=== PATIENT | male | born 1960 ===

== ENCOUNTER 2017-10-15 11:57 | Observation (INO) | payer MEDICAID ==
[2017-10-15] MEDS ORDERED: Sodium Chloride 0.9% 1,000 ML IV STA (12:45)
--- NOTE | 2017-10-15 13:09 | ED PDOC ---
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 states for the past 2 weeks he's a non-productive cough and an itchy throat. For the past 3 days he's developed a tactile fever along with worsening cough. States he took Tylenol yesterday but did not take any medications today. Further reports having midsternal chest pain present only with coughing. Denies JERRY, hemoptysis, sick contacts, recent travel, leg pain, rash, N/V/D, abdominal pain. Past Medical History Reviewed: Historical Data, Nursing Documentation, Vital Signs Vital Signs: Last Vital Signs Temp 99.0 F 10/15/17 14:41 Pulse 119 H 10/15/17 16:32 Resp 20 10/15/17 14:41 BP 142/71 10/15/17 12:07 Pulse Ox 97 10/15/17 16:32 - Medical History PMH: CAD, Diabetes, HTN, Hypercholesterolemia Denies: Chronic Kidney Disease - Surgical History Surgical History: Coronary Stent (x3) - Family History Family History: States: No Known Family Hx - Home Medications Home Medications: Ambulatory Orders Medication Instructions Recorded Allopurinol [Zyloprim] 300 mg PO DAILY 10/15/17 Aspirin [Ecotrin] 81 mg PO DAILY 10/15/17 Azilsartan Medoxomil [Edarbi] 40 mg PO DAILY 10/15/17 Clopidogrel [Plavix] 75 mg PO DAILY 10/15/17 Dexlansoprazole [Dexilant] 30 mg PO DAILY PRN 10/15/17 Ergocalciferol (Vitamin D2) 50,000 unit PO SAT 10/15/17 [Vitamin D2] Fenofibrate,Micronized 134 mg PO HS 10/15/17 [Fenofibrate] Glipizide [Glipizide ER] 5 mg PO DAILY 10/15/17 Lesinurad [Zurampic] 200 mg PO DAILY 10/15/17 Liraglutide [Victoza 2-Federico] 1.8 mg SC DAILY 10/15/17 Pioglitazone [Actos] 30 mg PO DAILY 08/14/18 Rosuvastatin Calcium [Crestor] 40 mg PO HS 10/15/17 Vortioxetine Hydrobromide 20 mg PO DAILY 10/15/17 [Trintellix] - Allergies Allergies/Adverse Reactions: Allergies Allergy/AdvReac Type Severity Reaction Status Date / Time No Known Allergies Allergy Verified 10/15/17 12:07 Curb-65 Severity Score - CURB-65 Severity Score Confusion: No Bun >19mg/dl (>7mmol/L): Yes Respiratory Rate greater than/equal to 30: No Systolic BP <90 or Diastolic BP less than/equal 60mmHg: No Age >64: No Curb-65 Score: 1 Percentage 30-day mortality: 2.7% Review of Systems ROS Statement: Except As Marked, All Systems Reviewed And Found Negative Constitutional: Positive for: Fever, Chills, Malaise Cardiovascular: Positive for: Chest Pain Respiratory: Positive for: Cough Physical Exam - Reviewed Nursing Documentation Reviewed: Yes Vital Signs Reviewed: Yes - Physical Exam Appears: Positive for: Well, Non-toxic, No Acute Distress Head Exam: Positive for: ATRAUMATIC, NORMAL INSPECTION, NORMOCEPHALIC Skin: Positive for: Normal Color, Warm. Negative for: Rash Eye Exam: Positive for: EOMI, Normal appearance, PERRL ENT: Positive for: Normal ENT Inspection. Negative for: Pharyngeal Erythema, Tonsillar Exudate, Tonsillar Swelling Neck: Positive for: Normal, Painless ROM Cardiovascular/Chest: Positive for: Regular Rate, Rhythm Respiratory: Positive for: Normal Breath Sounds. Negative for: Decreased Breath Sounds, Accessory Muscle Use, Wheezing, Respiratory Distress Gastrointestinal/Abdominal: Positive for: Normal Exam, Soft. Negative for: Tenderness Back: Positive for: Normal Inspection Extremity: Positive for: Normal ROM. Negative for: Calf Tenderness (b/l) Neurologic/Psych: Positive for: Alert, Oriented. Negative for: Aphasia, Facial Droop - Laboratory Results Result Diagrams: 10/15/17 13:55 10/15/17 13:55 - ECG ECG: Positive for: Interpreted By Me ECG Rhythm: Positive for: Sinus Tachycardia. Negative for: ST/T Changes Rate: 119 O2 Sat by Pulse Oximetry: 97 - Radiology X-Ray: Interpreted by Me (CXR) X-Ray Interpretation: Infiltrates (RUL) - Progress ED Course And Treament: Labs, EKG, VBG, IV NS bolus x 1, tylenol 975mg PO, blood culture x 2 ordered. 1435 Rocephin 1gm IV, zithromax 500mg IV ordered. Case d/w Dr. Molina who agrees with care and plan. Case d/w Dr. Parkinson, pt's PMD, who also agrees with care and requests that pt. be admitted to his service. Pt. and son informed of results and plan. Disposition - Clinical Impression Clinical Impression: Pneumonia - Patient ED Disposition Is Patient to be Admitted: Yes - Disposition Disposition Time: 14:36 Condition: GUARDED
--- NOTE | 2017-10-15 13:37 | RAD ---
HISTORY: COMPARISON: No prior. TECHNIQUE: Chest PA and lateral FINDINGS: LINES AND TUBES: None. LUNG AND PLEURA: The lungs are well inflated. There is consolidation in the right upper lobe. No pleural effusion or pneumothorax. HEART AND MEDIASTINUM: The heart is not enlarged. The hilar and mediastinal contours are within normal limits. SKELETAL STRUCTURES: The bony structures are within normal limits for the patient's age. VISUALIZED UPPER ABDOMEN: Normal. OTHER FINDINGS: None. IMPRESSION: Suspect right upper lobe pneumonia. Follow-up after medical management is recommended to ensure complete resolution and exclude underlying mass.
[2017-10-15 13:52] LABS: VENOUS BLOOD GAS BASE EXCESS 2.7 mmol/L (0.0-2.0); VENOUS BLOOD GAS PCO2 44 mmHg (40-60); VENOUS BLOOD GAS PO2 24 mm/Hg (30-55); VENOUS BLOOD PH 7.41 (7.32-7.43)
[2017-10-15 14:14] LABS: BASO % 0.3 % (0.0-2.0); EOS % 0.2 % (0.0-4.0); LYMPH # 0.7 K/uL (1.0-4.3); LYMPH % 8.9 % (20.0-40.0); MEAN CELL VOLUME 87.2 fl (80.0-94.0); MEAN CORPUSCULAR HEMOGLOBIN 28.9 pg (27.0-31.0); MEAN CORPUSCULAR HGB CONC 33.1 g/dL (33.0-37.0); MEAN PLATELET VOLUME 7.4 fl (7.2-11.7); MONO # 0.6 K/uL (0.0-0.8); MONO % 8.4 % (0.0-10.0); NEUT # 6.3 K/uL (1.8-7.0); NEUT % 82.2 % (50.0-75.0); NRBC % 0.2 % (0.0-0.0); PLATELET COUNT 388 K/uL (130-400); RED CELL DISTRIBUTION WIDTH 16.5 % (11.5-14.5); WHITE BLOOD COUNT 7.6 K/uL (4.8-10.8)
[2017-10-15 14:27] LABS: ALB/GLOB RATIO 1.1 (1.0-2.1); ALBUMIN 3.7 g/dL (3.5-5.0); ALT/SGPT 24 U/L (21-72); AST/SGOT 34 U/L (17-59); BLOOD UREA NITROGEN 24 mg/dl (9-20); GFR AFRICAN-AMERICAN > 60; GFR NON-AFRICAN AMERICAN 52
[2017-10-15] MEDS ORDERED: Azithromycin 500 MG in Sodium Chloride 0.9% 250 ML IVPB STA (14:35)
[2017-10-15 14:45] LABS: SQUAMOUS EPITHIAL < 1 /hpf (0-5); URINE BILIRUBIN NEGATIVE (NEGATIVE); URINE BLOOD MODERATE (NEGATIVE); URINE CLARITY CLEAR (Clear); URINE COLOR YELLOW (YELLOW); URINE GLUCOSE (UA) >=500 mg/dL (Normal); URINE LEUKOCYTE ESTERASE NEG Leu/uL (Negative); URINE PROTEIN 100 mg/dL (NEGATIVE)
[2017-10-15] MEDS ORDERED: cefTRIAXone (Rocephin) 1 gm Inj ONE (14:56)
[2017-10-15] MEDS ORDERED: Azithromycin 500 MG IV IVPB ONE (14:57)
[2017-10-15 15:27] LABS: ANISOCYTOSIS SLIGHT; EOSINOPHIL 1 % (0-7); HYPOCHROMIC SLIGHT; LYMPHOCYTE 7 % (20-50); MONOCYTE 7 % (0-10); NEUTROPHIL 85 % (42-75); PLATELET ESTIMATE NORMAL (NORMAL); TOTAL CELLS COUNTED 100
[2017-10-15 15:28] LABS: LARGE PLATELETS PRESENT
[2017-10-15] MEDS ORDERED: DEXLANSOPRAZOLE 30 MG PO PRN (21:55)
[2017-10-16] MEDS: guaiFENesin DM 200 mg-20 mg/10 ml UD PO PRN ×2 (00:14→08:38)
[2017-10-16 05:32] LABS: HEMOGLOBIN 10.5 g/dL (12.0-18.0); MEAN CELL VOLUME 86.5 fl (80.0-94.0); MEAN CORPUSCULAR HEMOGLOBIN 27.8 pg (27.0-31.0); MEAN CORPUSCULAR HGB CONC 32.1 g/dL (33.0-37.0); RBC 3.77 Mil/uL (4.40-5.90); RED CELL DISTRIBUTION WIDTH 16.8 % (11.5-14.5); WHITE BLOOD COUNT 6.7 K/uL (4.8-10.8)
[2017-10-16 05:49] LABS: ALBUMIN 3.4 g/dL (3.5-5.0); ALT/SGPT 21 U/L (21-72); AST/SGOT 25 U/L (17-59); BLOOD UREA NITROGEN 19 mg/dl (9-20); CALCIUM 8.7 mg/dL (8.4-10.2); GFR AFRICAN-AMERICAN > 60; GFR NON-AFRICAN AMERICAN > 60
[2017-10-16] MEDS: GlipiZIDE 5 mg SR Tab PO SCH (08:28)
[2017-10-16] MEDS: Azithromycin 500 MG in Sodium Chloride 0.9% 250 ML IVPB SCH (08:28)
[2017-10-16] MEDS: Pantoprazole 40 mg EC Tab PO SCH (08:29)
--- NOTE | 2017-10-16 08:33 | CARD ---
APPROVED REPORT Date of service: 10/15/2017 <Conclusion> Sinus tachycardia Low voltage QRS Cannot rule out Anterior infarct, age undetermined Abnormal ECG
[2017-10-16] MEDS ORDERED: [UNRECOGNIZED DRUG - OTHER] PO SCH (09:00)
[2017-10-16] MEDS ORDERED: Pantoprazole 20 mg EC Tab PO SCH (09:00)
[2017-10-16] MEDS ORDERED: Patient's Own Med (Azilsartan Medoxomil [Edarbi] 40 mg) PO SCH (09:00)
--- NOTE | 2017-10-16 14:05 | CP.PCM.HP ---
History of Present Illness - History of Present Illness History of Present Illness: 57 yo M with hx diabetes, hypertension, gout, hyperlipidemia, admitted due to pneumonia; recently saw PMD and was prescribed medication but felt worse and came to ED. Has complaint of non-productive cough and itchy throat x2 days, and feels like he has a fever for the past 3 days. States he took Tylenol the day prior to admission but did not help resolve his symptoms. Was admitted overnight; today he denies shortness of breath, hemoptysis, nausea , vomiting, dizziness, leg pain, rash. Present on Admission - Present on Admission Any Indicators Present on Admission: No Review of Systems - Review of Systems Review of Systems: as per HPI Past Patient History - Past Medical History & Family History Past Medical History?: Yes - Past Social History Smoking Status: Never Smoked - CARDIAC Hx Cardiac Disorders: Yes Hx Hypercholesterolemia: Yes Hx Hypertension: Yes - PULMONARY Hx Respiratory Disorders: No - NEUROLOGICAL Hx Neurological Disorder: No - HEENT Hx HEENT Problems: No - RENAL Hx Chronic Kidney Disease: No - ENDOCRINE/METABOLIC Hx Endocrine Disorders: Yes Hx Diabetes Mellitus Type 2: Yes - HEMATOLOGICAL/ONCOLOGICAL Hx Blood Disorders: No - INTEGUMENTARY Hx Dermatological Problems: No - MUSCULOSKELETAL/RHEUMATOLOGICAL Hx Musculoskeletal Disorders: No Hx Falls: No - GASTROINTESTINAL Hx Gastrointestinal Disorders: No - GENITOURINARY/GYNECOLOGICAL Hx Genitourinary Disorders: No - PSYCHIATRIC Hx Psychophysiologic Disorder: No Hx Substance Use: No - SURGICAL HISTORY Hx Surgeries: Yes Hx Coronary Stent: Yes (x3) - ANESTHESIA Hx Anesthesia: Yes (as per pt) Hx Anesthesia Reactions: No Meds Allergies/Adverse Reactions: Allergies Allergy/AdvReac Type Severity Reaction Status Date / Time No Known Allergies Allergy Verified 10/15/17 12:07 Physical Exam - Constitutional Appears: No Acute Distress - Respiratory Exam Respiratory Exam: absent: Respiratory Distress Additional comments: good air entry but coarse lung sounds R side - Cardiovascular Exam Cardiovascular Exam: REGULAR RHYTHM - GI/Abdominal Exam GI & Abdominal Exam: Soft Additional comments: obese - Extremities Exam Extremities exam: Negative for: calf tenderness - Neurological Exam Neurological exam: Alert - Skin Skin Exam: Normal Color, Warm Results - Vital Signs Recent Vital Signs: Last Vital Signs Temp 97.6 F 10/16/17 12:00 Pulse 91 H 10/16/17 12:00 Resp 20 10/16/17 12:00 BP 154/91 H 10/16/17 12:00 Pulse Ox 94 L 10/16/17 12:00 - Labs Result Diagrams: 10/16/17 04:20 10/16/17 04:20 Labs: Laboratory Results - last 24 hr 10/15/17 10/15/17 10/15/17 13:55 13:55 13:55 WBC 7.6 RBC 3.80 L Hgb 11.0 L Hct 33.2 L MCV 87.2 MCH 28.9 MCHC 33.1 RDW 16.5 H Plt Count 388 MPV 7.4 Neut % (Auto) 82.2 H Lymph % (Auto) 8.9 L [place] % (Auto) 8.4 Eos % (Auto) 0.2 Baso % (Auto) 0.3 Neut # (Auto) 6.3 Lymph # (Auto) 0.7 L [place] # (Auto) 0.6 Eos # (Auto) 0.0 Baso # (Auto) 0.0 Neutrophils % (Manual) 85 H Lymphocytes % (Manual) 7 L Monocytes % (Manual) 7 Eosinophils % (Manual) 1 Platelet Estimate Normal Large Platelets Present Hypochromasia (manual) Slight Anisocytosis (manual) Slight ESR Sodium 137 Potassium 3.9 Chloride 101 Carbon Dioxide 27 Anion Gap 13 BUN 24 H Creatinine 1.4 Est GFR ( Amer) > 60 Est GFR (Non-Af Amer) 52 POC Glucose (mg/dL) Random Glucose 250 H Calcium 9.0 Total Bilirubin 0.4 AST 34 ALT 24 Alkaline Phosphatase 90 Troponin I 0.0130 Total Protein 7.0 Albumin 3.7 Globulin 3.3 Albumin/Globulin Ratio 1.1 Urine Color Urine Clarity Urine pH Ur Specific [place] Urine Protein Urine Glucose (UA) Urine Ketones Urine Blood Urine Nitrate Urine Bilirubin Urine Urobilinogen Ur Leukocyte Esterase Urine RBC (Auto) Urine Microscopic WBC Ur Squamous Epith Cells Influenza Typ A,B (EIA) Negative for flu a/b Grp A Beta Strep Ag 10/15/17 10/15/17 10/16/17 13:55 13:55 04:20 WBC 6.7 RBC 3.77 L Hgb 10.5 L Hct 32.7 L MCV 86.5 MCH 27.8 MCHC 32.1 L RDW 16.8 H Plt Count 408 H MPV Neut % (Auto) Lymph % (Auto) [place] % (Auto) Eos % (Auto) Baso % (Auto) Neut # (Auto) Lymph # (Auto) [place] # (Auto) Eos # (Auto) Baso # (Auto) Neutrophils % (Manual) Lymphocytes % (Manual) Monocytes % (Manual) Eosinophils % (Manual) Platelet Estimate Large Platelets Hypochromasia (manual) Anisocytosis (manual) ESR 109 H Sodium Potassium Chloride Carbon Dioxide Anion Gap BUN Creatinine Est GFR ( Amer) Est GFR (Non-Af Amer) POC Glucose (mg/dL) Random Glucose Calcium Total Bilirubin AST ALT Alkaline Phosphatase Troponin I Total Protein Albumin Globulin Albumin/Globulin Ratio Urine Color Yellow Urine Clarity Clear Urine pH 6.0 Ur Specific [place] 1.023 Urine Protein 100 Urine Glucose (UA) >=500 Urine Ketones Negative Urine Blood Moderate Urine Nitrate Negative Urine Bilirubin Negative Urine Urobilinogen 2.0 Ur Leukocyte Esterase Neg Urine RBC (Auto) 14 H Urine Microscopic WBC 1 Ur Squamous Epith Cells < 1 Influenza Typ A,B (EIA) Grp A Beta Strep Ag Negative 10/16/17 10/16/17 10/16/17 04:20 05:02 11:33 WBC RBC Hgb Hct MCV MCH MCHC RDW Plt Count MPV Neut % (Auto) Lymph % (Auto) [place] % (Auto) Eos % (Auto) Baso % (Auto) Neut # (Auto) Lymph # (Auto) [place] # (Auto) Eos # (Auto) Baso # (Auto) Neutrophils % (Manual) Lymphocytes % (Manual) Monocytes % (Manual) Eosinophils % (Manual) Platelet Estimate Large Platelets Hypochromasia (manual) Anisocytosis (manual) ESR Sodium 140 Potassium 3.7 Chloride 106 Carbon Dioxide 25 Anion Gap 13 BUN 19 Creatinine 1.2 Est GFR ( Amer) > 60 Est GFR (Non-Af Amer) > 60 POC Glucose (mg/dL) 154 H 194 H Random Glucose 165 H Calcium 8.7 Total Bilirubin 0.4 AST 25 ALT 21 Alkaline Phosphatase 85 Troponin I Total Protein 6.7 Albumin 3.4 L Globulin 3.3 Albumin/Globulin Ratio 1.0 Urine Color Urine Clarity Urine pH Ur Specific [place] Urine Protein Urine Glucose (UA) Urine Ketones Urine Blood Urine Nitrate Urine Bilirubin Urine Urobilinogen Ur Leukocyte Esterase Urine RBC (Auto) Urine Microscopic WBC Ur Squamous Epith Cells Influenza Typ A,B (EIA) Grp A Beta Strep Ag Assessment & Plan (1) Pneumonia Status: Acute Comment: presumed bacterial community acquired (2) DM2 (diabetes mellitus, type 2) Status: Acute (3) Hypertension Status: Acute (4) Hyperlipidemia Status: Acute - Assessment and Plan (Free Text) Plan: - admitted to telemetry, continue tele monitoring - IV azithromycin, ceftriaxone - tylenol PRN for fever - resume home meds for diabetes, hypertension, hyperlipidemia, gout - heart healthy diet - lovenox
[2017-10-16 20:21] VITALS: O2SAT 95
[2017-10-17 08:16] VITALS: TEMP 98.1
[2017-10-17] MEDS: Insulin Lispro (humaLOG) 100 Units/ml Inj SC SCH ×2 (08:45→12:31)
[2017-10-17] MEDS ORDERED: Enoxaparin 40 mg Syringe SC SCH (09:00)
[2017-10-17] MEDS: GlipiZIDE 5 mg SR Tab PO SCH (09:40)
[2017-10-17] MEDS: Pantoprazole 40 mg EC Tab PO SCH (09:48)
[2017-10-17] MEDS: Azithromycin 500 MG in Sodium Chloride 0.9% 250 ML IVPB SCH (09:55)
[2017-10-17] MEDS ORDERED: levoFLOXacin 500 MG TAB PO SCH (12:00)
[2017-10-17 12:19] VITALS: BP 161/94; PULSE 93; RESP 18
[2017-10-17] MEDS: guaiFENesin DM 200 mg-20 mg/10 ml UD PO PRN (12:33)
--- NOTE | 2017-10-17 13:10 | CP.PCM.DIS ---
Provider - Provider Date of Admission: 10/15/17 14:56 Attending physician: Julio Parkinson MD Primary care physician: Dr Stephanie Parkinson Time Spent in preparation of Discharge (in minutes): 30 Diagnosis - Discharge Diagnosis (1) Pneumonia Status: Acute Comment: -D/c home with Levofloxacin. -Will f/u with PCP, Dr Parkinson next Saturday. Hospital Course - Lab Results Lab Results: Micro Results 10/15/17 13:55 Throat Group A Strep Throat Culture - Final NO BETA STREP GROUP A ISOLATED. 10/15/17 13:55 Urine,Clean Catch Urine Culture - Final No Growth (<1,000 CFU/ML) 10/15/17 13:55 Blood-Venous Blood Culture - Preliminary NO GROWTH AFTER 24 HOURS 10/15/17 13:55 Blood-Venous Blood Culture - Preliminary NO GROWTH AFTER 24 HOURS Most Recent Lab Values WBC 6.7 K/uL (4.8-10.8) 10/16/17 04:20 RBC 3.77 Mil/uL (4.40-5.90) L 10/16/17 04:20 Hgb 10.5 g/dL (12.0-18.0) L 10/16/17 04:20 Hct 32.7 % (35.0-51.0) L 10/16/17 04:20 MCV 86.5 fl (80.0-94.0) 10/16/17 04:20 MCH 27.8 pg (27.0-31.0) 10/16/17 04:20 MCHC 32.1 g/dL (33.0-37.0) L 10/16/17 04:20 RDW 16.8 % (11.5-14.5) H 10/16/17 04:20 Plt Count 408 K/uL (130-400) H 10/16/17 04:20 MPV 7.4 fl (7.2-11.7) 10/15/17 13:55 Neut % (Auto) 82.2 % (50.0-75.0) H 10/15/17 13:55 Lymph % (Auto) 8.9 % (20.0-40.0) L 10/15/17 13:55 [place] % (Auto) 8.4 % (0.0-10.0) 10/15/17 13:55 Eos % (Auto) 0.2 % (0.0-4.0) 10/15/17 13:55 Baso % (Auto) 0.3 % (0.0-2.0) 10/15/17 13:55 Neut # (Auto) 6.3 K/uL (1.8-7.0) 10/15/17 13:55 Lymph # (Auto) 0.7 K/uL (1.0-4.3) L 10/15/17 13:55 [place] # (Auto) 0.6 K/uL (0.0-0.8) 10/15/17 13:55 Eos # (Auto) 0.0 K/uL (0.0-0.7) 10/15/17 13:55 Baso # (Auto) 0.0 K/uL (0.0-0.2) 10/15/17 13:55 Neutrophils % (Manual) 85 % (42-75) H 10/15/17 13:55 Lymphocytes % (Manual) 7 % (20-50) L 10/15/17 13:55 Monocytes % (Manual) 7 % (0-10) 10/15/17 13:55 Eosinophils % (Manual) 1 % (0-7) 10/15/17 13:55 Platelet Estimate Normal (NORMAL) 10/15/17 13:55 Large Platelets Present 10/15/17 13:55 Hypochromasia (manual) Slight 10/15/17 13:55 Anisocytosis (manual) Slight 10/15/17 13:55 ESR 109 mm/hr (0-20) H 10/16/17 04:20 pO2 24 mm/Hg (30-55) L 10/15/17 13:45 VBG pH 7.41 (7.32-7.43) 10/15/17 13:45 VBG pCO2 44 mmHg (40-60) 10/15/17 13:45 VBG HCO3 25.6 mmol/L 10/15/17 13:45 VBG Total CO2 29.3 mmol/L (22-28) H 10/15/17 13:45 VBG O2 Sat (Calc) 35.8 % (40-65) L 10/15/17 13:45 VBG Base Excess 2.7 mmol/L (0.0-2.0) H 10/15/17 13:45 VBG Potassium 3.8 mmol/L (3.6-5.2) 10/15/17 13:45 Sodium 135.0 mmol/L (132-148) 10/15/17 13:45 Chloride 103.0 mmol/L (98-107) 10/15/17 13:45 Glucose 254 mg/dL (75-110) H 10/15/17 13:45 Lactate 1.1 mmol/L (0.7-2.1) 10/15/17 13:45 FiO2 21.0 % 10/15/17 13:45 Sodium 140 mmol/l (132-148) 10/16/17 04:20 Potassium 3.7 MMOL/L (3.6-5.0) 10/16/17 04:20 Chloride 106 mmol/L (98-107) 10/16/17 04:20 Carbon Dioxide 25 mmol/L (22-30) 10/16/17 04:20 Anion Gap 13 (10-20) 10/16/17 04:20 BUN 19 mg/dl (9-20) 10/16/17 04:20 Creatinine 1.2 mg/dl (0.8-1.5) 10/16/17 04:20 Est GFR ( Amer) > 60 10/16/17 04:20 Est GFR (Non-Af Amer) > 60 10/16/17 04:20 POC Glucose (mg/dL) 350 mg/dL (65-110) H 10/17/17 11:28 Random Glucose 165 mg/dL (75-110) H 10/16/17 04:20 Hemoglobin A1c 7.2 % (4.2-6.5) H 10/16/17 04:20 Calcium 8.7 mg/dL (8.4-10.2) 10/16/17 04:20 Total Bilirubin 0.4 mg/dl (0.2-1.3) 10/16/17 04:20 AST 25 U/L (17-59) 10/16/17 04:20 ALT 21 U/L (21-72) 10/16/17 04:20 Alkaline Phosphatase 85 U/L (38-126) 10/16/17 04:20 Troponin I 0.0130 ng/mL (0.00-0.120) 10/15/17 13:55 Total Protein 6.7 G/DL (6.3-8.2) 10/16/17 04:20 Albumin 3.4 g/dL (3.5-5.0) L 10/16/17 04:20 Globulin 3.3 gm/dL (2.2-3.9) 10/16/17 04:20 Albumin/Globulin Ratio 1.0 (1.0-2.1) 10/16/17 04:20 Venous Blood Potassium 3.8 mmol/L (3.6-5.2) 10/15/17 13:45 Urine Color Yellow (YELLOW) 10/15/17 13:55 Urine Clarity Clear (Clear) 10/15/17 13:55 Urine pH 6.0 (5.0-8.0) 10/15/17 13:55 Ur Specific [place] 1.023 (1.003-1.030) 10/15/17 13:55 Urine Protein 100 mg/dL (NEGATIVE) 10/15/17 13:55 Urine Glucose (UA) >=500 mg/dL (Normal) 10/15/17 13:55 Urine Ketones Negative mg/dL (NEGATIVE) 10/15/17 13:55 Urine Blood Moderate (NEGATIVE) 10/15/17 13:55 Urine Nitrate Negative (NEGATIVE) 10/15/17 13:55 Urine Bilirubin Negative (NEGATIVE) 10/15/17 13:55 Urine Urobilinogen 2.0 mg/dL (0.2-1.0) 10/15/17 13:55 Ur Leukocyte Esterase Neg [place]/uL (Negative) 10/15/17 13:55 Urine RBC (Auto) 14 /hpf (0-3) H 10/15/17 13:55 Urine Microscopic WBC 1 /hpf (0-5) 10/15/17 13:55 Ur Squamous Epith Cells < 1 /hpf (0-5) 10/15/17 13:55 Influenza Typ A,B (EIA) Negative for flu a/b (NEGATIVE) 10/15/17 13:55 Grp A Beta Strep Ag Negative (NEGATIVE) 10/15/17 13:55 - Hospital Course Hospital Course: 57 y/o M with a PMhx of DM 2, HTN, gout, hyperlipidemia was admitted for evaluation of community acquired pneumonia. CXR showed RUL pneumonia. Pt was initiated on IV Ceftriaxone and Azithromycin. Pt reported feeling better, clinically with remarkable improvement. Pt afebrile overnight, no acute events, tolerating PO, will be discharged home with prescription for PO Levofloxacin. Pt will f/u with PCP within 7 days. - Date & Time of H&P Date of H&P: 10/16/17 Time of H&P: 14:00 Discharge Exam - Head Exam Head Exam: ATRAUMATIC, NORMAL INSPECTION, NORMOCEPHALIC - Eye Exam Eye Exam: EOMI, Normal appearance - ENT Exam ENT Exam: Mucous Membranes Moist - Respiratory Exam Respiratory Exam: NORMAL BREATHING PATTERN, UNREMARKABLE. absent: Rales, Rhonchi, Wheezes, Respiratory Distress - Cardiovascular Exam Cardiovascular Exam: REGULAR RHYTHM, +S1, +S2 - GI/Abdominal Exam GI & Abdominal Exam: Normal Bowel Sounds, Soft. absent: Distended, Guarding, Tenderness - Extremities Exam Extremities exam: full ROM, normal inspection - Neurological Exam Neurological exam: Alert, Oriented x3 Discharge Plan - Discharge Medications Prescriptions: guaiFENesin/Dextromethorphan [Robitussin DM] 10 ml PO Q4 PRN #1 bottle PRN Reason: Cough Levofloxacin [Levaquin] 500 mg PO DAILY #7 tablet - Follow Up Plan Condition: GUARDED Disposition: HOME/ ROUTINE Instructions: Pneumonia, Adult (DC), Diabetes Type 2 (DC) Additional Instructions: follow up with on saturday10/23/17 11:00AM Referrals: Julio Parkinson MD [Family Provider] -
[2017-10-19] MEDS ORDERED: Ergocalciferol 50,000 Intl Units Cap PO SCH (09:00)
== END 2017-10-17 13:00 | disposition home or self-care (01) ==
LOC: H.ER 11:57 → INTOOBSV 14:56 → H.ERHOLD 14:56 → H.TEL 18:26
PROVIDERS: ADMIT Family Medicine; ATTEND Family Medicine
DX: J18.9 Pneumonia, unspecified organism (principal); I25.10 Atherosclerotic heart disease of native coronary artery without angina pectoris; I10 Essential (primary) hypertension; E11.9 Type 2 diabetes mellitus without complications; E78.5 Hyperlipidemia, unspecified; E78.00 Pure hypercholesterolemia, unspecified; M10.9 Gout, unspecified; Z95.5 Presence of coronary angioplasty implant and graft; Z79.02 Long term (current) use of antithrombotics/antiplatelets; Z79.82 Long term (current) use of aspirin; Z79.84 Long term (current) use of oral hypoglycemic drugs
CPT/HCPCS: 36415; 71046; 80053; 81003; 82803; 82948; 83036; 84484; 85025; 85027; 85651; 87040; 87070; 87086; 87430; 87804; 93005; 96365; 99285; G0378; J0456; J0696; J1650; J7030